=== PATIENT | male | born 1985 | race Caucasian/White ===

== ENCOUNTER 2016-08-24 17:23 | Emergency (ER) | payer OTHER ==
--- NOTE | 2016-08-24 20:55 | Emergency Department Report ---
ED ENT HPI - General Chief complaint: Dental/Oral Stated complaint: TOOTHACHE Time Seen by Provider: 08/24/16 20:50 Source: patient Mode of arrival: Ambulatory Limitations: No Limitations - History of Present Illness Initial comments: 31-year-old male presents with complaint of right-sided lower toothache for 3 days. States one of his teeth is cracked due to cavities. Denies any pus or blood drainage from mouth no dyspnea no difficulty breathing or difficulty swallowing states that it is painful when he chews. Speaking in full sentences. Denies any fever or chills or any significant facial swelling. MD complaint: tooth pain Onset/Timin -: days(s) Location: tooth # (28) 1 - dental cavity/fracture Severity scale (0 -10): 7 Quality: sharp Consistency: constant Improves with: none Worsens with: eating - Related Data Previous Rx's Medication Instructions Recorded Last Taken Type Acetaminophen/Codeine [Tylenol #3] 1 tab PO Q6H PRN #12 tab 08/24/16 Unknown Rx Amoxicillin [Trimox CAP] 500 mg PO Q8H #21 capsule 08/24/16 Unknown Rx Chlorhexidine Mouthwash [Peridex] 20 ml MM TID #1 bottle 08/24/16 Unknown Rx Ibuprofen [Motrin] 600 mg PO Q8H PRN #30 tablet 08/24/16 Unknown Rx Allergies Allergy/AdvReac Type Severity Reaction Status Date / Time No Known Allergies Allergy Unverified 08/24/16 17:51 ED Dental HPI - General Chief complaint: Dental/Oral Stated complaint: TOOTHACHE Time Seen by Provider: 08/24/16 20:50 Source: patient Mode of arrival: Ambulatory Limitations: No Limitations - Related Data Previous Rx's Medication Instructions Recorded Last Taken Type Acetaminophen/Codeine [Tylenol #3] 1 tab PO Q6H PRN #12 tab 08/24/16 Unknown Rx Amoxicillin [Trimox CAP] 500 mg PO Q8H #21 capsule 08/24/16 Unknown Rx Chlorhexidine Mouthwash [Peridex] 20 ml MM TID #1 bottle 08/24/16 Unknown Rx Ibuprofen [Motrin] 600 mg PO Q8H PRN #30 tablet 08/24/16 Unknown Rx Allergies Allergy/AdvReac Type Severity Reaction Status Date / Time No Known Allergies Allergy Unverified 08/24/16 17:51 ED Review of Systems ROS: Stated complaint: TOOTHACHE Other details as noted in HPI Constitutional: denies: chills, fever Eyes: denies: eye pain, eye discharge, vision change ENT: dental pain. denies: ear pain, throat pain Respiratory: denies: cough, shortness of breath, wheezing Cardiovascular: denies: chest pain, palpitations Endocrine: no symptoms reported Gastrointestinal: denies: abdominal pain, nausea, diarrhea Genitourinary: denies: urgency, dysuria Musculoskeletal: denies: back pain, joint swelling, arthralgia Skin: denies: rash, lesions Neurological: denies: headache, weakness, paresthesias Psychiatric: denies: anxiety, depression Hematological/Lymphatic: denies: easy bleeding, easy bruising ED Past Medical Hx - Past Medical History Previous Medical History?: No - Surgical History Past Surgical History?: No - Social History Smoking Status: Current Every Day Smoker Substance Use Type: Alcohol, Non Opiate Pain, Other - Medications Home Medications: Home Medications Medication Instructions Recorded Confirmed Last Taken Type Acetaminophen/Codeine [Tylenol #3] 1 tab PO Q6H PRN #12 tab 08/24/16 Unknown Rx Amoxicillin [Trimox CAP] 500 mg PO Q8H #21 capsule 08/24/16 Unknown Rx Chlorhexidine Mouthwash [Peridex] 20 ml MM TID #1 bottle 08/24/16 Unknown Rx Ibuprofen [Motrin] 600 mg PO Q8H PRN #30 tablet 08/24/16 Unknown Rx ED Physical Exam - General Limitations: No Limitations General appearance: alert, in no apparent distress - Head Head exam: Present: atraumatic, normocephalic - Eye Eye exam: Present: normal appearance, PERRL, EOMI - ENT ENT exam: Present: mucous membranes moist - Expanded ENT Exam Expanded Mouth exam: Present: normal external inspection, tongue normal Teeth exam: Present: dental caries, fractured tooth # (28), dental tenderness # (28), gingival enlargement Throat exam: Positive: normal inspection - Neck Neck exam: Present: normal inspection, full ROM - Respiratory Respiratory exam: Present: normal lung sounds bilaterally. Absent: respiratory distress - Cardiovascular Cardiovascular Exam: Present: regular rate, normal rhythm. Absent: systolic murmur, diastolic murmur, rubs, gallop - GI/Abdominal GI/Abdominal exam: Present: soft, normal bowel sounds - Rectal Rectal exam: Present: deferred - Extremities Exam Extremities exam: Present: normal inspection - Back Exam Back exam: Present: normal inspection - Neurological Exam Neurological exam: Present: alert, oriented X3 - Psychiatric Psychiatric exam: Present: normal affect, normal mood - Skin Skin exam: Present: warm, dry, intact, normal color. Absent: rash ED Course Vital Signs 08/24/16 17:51 Temperature 98 F Pulse Rate 104 H Respiratory 20 Rate Blood Pressure 120/77 O2 Sat by Pulse 98 Oximetry ED Medical Decision Making - Medical Decision Making A/P: Dental caries, dental cavity 1-amoxicillin, Peridex mouthwash, Tylenol No. 3 when necessary, Motrin when necessary 2-patient referred to multiple dental clinics. I reinforced the importance of follow-up with dentist as patient will likely need large filling or canal for his deteriorated tooth 3-no evidence of significant dental abscess no oral pharyngeal involvement Critical care attestation.: If time is entered above; I have spent that time in minutes in the direct care of this critically ill patient, excluding procedure time. ED Disposition Clinical Impression: Dental cavity, Toothache Disposition: DISCHARGED TO HOME OR SELFCARE Is pt being admited?: No Does the pt Need Aspirin: No Condition: Stable Instructions: Dental Caries (ED), Toothache (ED) Prescriptions: Acetaminophen/Codeine [Tylenol #3] 1 tab PO Q6H PRN #12 tab PRN Reason: Toothache Amoxicillin [Trimox CAP] 500 mg PO Q8H #21 capsule Chlorhexidine Mouthwash [Peridex] 20 ml MM TID #1 bottle Ibuprofen [Motrin] 600 mg PO Q8H PRN #30 tablet PRN Reason: Pain Referrals: [facility] [Outside] - 3-5 Days Time of Disposition: 20:56
[2016-08-24] MEDS ORDERED: TYLENOL #3 PO ONE (21:03)
[2016-08-24 21:12] VITALS: BP 122/76
== END 2016-08-24 21:12 | disposition home or self-care (01) ==
LOC: ED 17:23
DX: K02.9 Dental caries, unspecified (principal); F17.200 Nicotine dependence, unspecified, uncomplicated; Z79.1 Long term (current) use of non-steroidal anti-inflammatories (NSAID); Z79.2 Long term (current) use of antibiotics
CPT/HCPCS: 99282